=== PATIENT | male | born 1970 | race Caucasian/White ===

== ENCOUNTER 2018-04-07 17:40 | Emergency (ER) | payer MEDICAID ==
[2018-04-07] MEDS: HYDROcodone/APAP 5/325MG 1 TAB TABLET PO (18:35)
[2018-04-07] MEDS: IBUPROFEN 800 MG TABLET. PO (18:35)
== END 2018-04-07 19:17 | disposition home or self-care (01) ==
LOC: ER 17:40
DX: S29.9XXA Unspecified injury of thorax, initial encounter (principal); W18.2XXA Fall in (into) shower or empty bathtub, initial encounter; Y93.E1 Activity, personal bathing and showering; Y99.8 Other external cause status; Y92.091 Bathroom in other non-institutional residence as the place of occurrence of the external cause
CPT/HCPCS: 71101; 99284